=== PATIENT | male | born 1965 | race Caucasian/White ===

== ENCOUNTER 2017-09-26 09:26 | Emergency (ER) | payer OTHER ==
[~2017-09-26] VITALS: Ht 182.9 cm; Wt 94.3 kg
--- NOTE | ~2017-09-26 | EKG ---
[address] [address] ELECTROCARDIOGRAM REPORT Name: MARIOLAMALIACECELIA Ramos Room #: DEP YVETTE Weber#: [id number] Admission: 09/26/17 Attend Phys: Discharge: 09/26/17 Date of : 67 Report #: [id number] THIS REPORT FOR: //name// [facility] ED Test Date: 2017-09-26 Test Time: 09:39:45 Pat Name: CECELIA SOLIMAN Department: Room: Gender: Safety [employer]: YVETTE : 1965 Requested By: Harley Fracnois Order Number: [id number] MD: Kp Ramey Measurements Intervals [place] Rate: 81 P: 60 [place]: 172 QRS: 48 QRSD: 111 T: 43 QT: 372 QTc: 432 Interpretive Statements Sinus rhythm No previous ECG available for comparison Electronically Signed On 09-27-2017 7:28:59 [employer]ILLWORK ESTIM[employer] by Kp Ramey [email or web address] <ELECTRONICALLY SIGNED> By: Kp Ramey MD 09/27/17 0728 0939 [id number] Kp Ramey MD /[email or web address]
[2017-09-26] MEDS ORDERED: ASPIR 8181 MG PO (09:49)
[2017-09-26] MEDS ORDERED: FLECAINIDE ACET50 M2 PO (09:49)
[2017-09-26 09:58] LABS: ABSOLUTE NEUTROPHILS 4.4 thou/uL (1.4-8.2); BASOPHILS 0.6 % (0.0-2.0); EOSINOPHILS 1.7 % (0.0-3.0); HEMATOCRIT 44.2 % (42.0-52.0); HEMOGLOBIN 14.7 gm/dL (14.0-18.0); LYMPHOCYTES 23.8 % (24.0-44.0); MANUAL DIFF NO; MCHC 33.3 g/dL (28.0-37.0); MCV 90.1 fL (80.0-100.0); MONOCYTES 7.8 % (1.0-8.0); PLATELET COUNT 219 thou/uL (150-400); POLYS 66.1 % (36.0-66.0); RBC 4.91 mil/uL (4.50-6.00); RDW 13.2 % (10.5-14.5); WBC 6.6 thou/uL (4.0-11.0)
[2017-09-26 10:15] LABS: ANION GAP 9 mmol/L (7-16); BUN 14 mg/dL (7-18); CHLORIDE 106 mmol/L (98-107); CO2 27 mmol/L (21-32); GLUCOSE 155 mg/dL (74-106); POTASSIUM 3.9 mmol/L (3.5-5.1); SODIUM 142 mmol/L (136-145); TROPONIN-I < 0.04 ng/mL (<0.06)
[2017-09-26 11:06] VITALS: BP 109/60
== END 2017-09-26 11:08 | disposition home or self-care (01) ==
LOC: ER 09:26
PROVIDERS: Nurse Practitioner
DX: R07.9 Chest pain, unspecified (principal); I48.91 Unspecified atrial fibrillation